=== PATIENT | male | born 1995 | race Caucasian/White ===

== ENCOUNTER 2019-02-21 23:11 | Emergency (ER) | payer OTHER | END 2019-02-22 03:27 | disposition other institution (70) | LOC: ED 23:11 → EDBD 23:11 → ED 02-22 03:27 | DX: Z02.89 Encounter for other administrative examinations (principal) ==

== ENCOUNTER 2019-02-21 23:11 | Emergency (ER) | payer OTHER ==
[~2019-02-21] VITALS: Ht 188 cm; Wt 74.8 kg
[2019-02-21 23:17] VITALS: Ht 188 cm; Wt 74.8 kg
[2019-02-22 00:12] LABS: BASOPHIL % 0.1 % (0-2); PLATELET COUNT 288 x10^3mcL (130-400)
[2019-02-22 00:33] LABS: ALBUMIN 4.6 g/dL (3.4-5.0); CALCIUM 9.6 mg/dL (8.5-10.1); CHLORIDE SERUM 102 mmol/L (98-107); GFR1 > 60 mL/min; POTASSIUM SERUM 3.8 mmol/L (3.5-5.1); SODIUM SERUM 138 mmol/L (136-145)
[2019-02-22 00:49] LABS: CARBON DIOXIDE 28.3 mmol/L (21-32); CREATININE SERUM 0.9 mg/dL (0.7-1.3); GLUCOSE SERUM 118 mg/dL (74-106)
[2019-02-22 00:53] LABS: ALKALINE PHOSPHATASE 56 U/L (46-116); ALT/SGPT 25 U/L (16-63); AST/SGOT 15 U/L (15-37); BILIRUBIN TOTAL 0.57 mg/dL (0.20-1.00); CHOLESTEROL 149 mg/dL (<200)
[2019-02-22 00:55] LABS: TOTAL PROTEIN, SERUM 8.3 g/dL (6.4-8.2)
[2019-02-22 03:27] VITALS: BP 124/71
== END 2019-02-22 03:27 | disposition other institution (70) ==
LOC: EDBD 23:11 → ED 23:11
PROVIDERS: Emergency Medicine
DX: F19.129 Other psychoactive substance abuse with intoxication, unspecified (principal); R40.4 Transient alteration of awareness
CPT/HCPCS: 36415; G0480; Q0092

== ENCOUNTER 2019-11-21 15:12 | Emergency (ER) | payer OTHER, MEDICAID ==
[~2019-11-21] VITALS: Ht 190.5 cm; Wt 98.9 kg
[2019-11-21 15:17] VITALS: Ht 190.5 cm; Wt 98.9 kg
[2019-11-21 20:00] VITALS: BP 122/73
== END 2019-11-21 19:00 | disposition home or self-care (01) ==
LOC: ED 15:12
DX: S61.012A Laceration without foreign body of left thumb without damage to nail, initial encounter (principal); W31.2XXA Contact with powered woodworking and forming machines, initial encounter; Y93.89 Activity, other specified; Y92.89 Other specified places as the place of occurrence of the external cause; Y99.8 Other external cause status
CPT/HCPCS: 90715; J2001; Q0092